=== PATIENT | female | born 1995 ===

== ENCOUNTER → 2018-09-26 | Outpatient (REF) | payer OTHER ==
[2018-09-30 14:17] LABS: HPV HYBRID CAPTURE II Positive (Negative)
== END ==
LOC: M LAB LCGH 11:58
PROVIDERS: ATTEND Nurse Practitioner Adult Health
DX: Z12.4 Encounter for screening for malignant neoplasm of cervix (principal); R87.610 Atypical squamous cells of undetermined significance on cytologic smear of cervix (ASC-US)
CPT/HCPCS: 87624; G0123